=== PATIENT | female | born 1960 | race Hispanic/Latino ===

== ENCOUNTER 2017-10-18 13:17 | Emergency (ER) | payer OTHER, BC ==
[2017-10-18 13:23] VITALS: O2SAT 100
[2017-10-18 13:56] LABS: VENOUS BLOOD GAS BASE EXCESS 6.6 mmol/L (0.0-2.0); VENOUS BLOOD GAS PCO2 50 mmHg (40-60); VENOUS BLOOD GAS PO2 19 mm/Hg (30-55); VENOUS BLOOD PH 7.42 (7.32-7.43)
--- NOTE | 2017-10-18 13:59 | ED PDOC ---
HPI: General Adult Time Seen by Provider: 10/18/17 13:22 Chief Complaint (Nursing): Medical Clearance Chief Complaint (Provider): Medical clearance History Per: Patient History/Exam Limitations: no limitations Onset/Duration Of Symptoms: Hrs (VP DATA) Current Symptoms Are (Timing): Still Present Severity: Mild Pain Scale Rating Of: 0 Additional Complaint(s): Sivan Amin is a 57 year old female, with no past medical history, who presents to the emergency department complaining of nausea, dizziness and slight headache after possible exposure to CO while at work today. Fire department was called and they had detectable carbon monoxide in the building. Patient was sent here for evaluation. She denies any other medical complaints. PMD: None provided. Past Medical History Reviewed: Historical Data, Nursing Documentation, Vital Signs Vital Signs: Last Vital Signs Temp Pulse 70 10/18/17 14:55 Resp 16 10/18/17 14:55 BP 120/71 10/18/17 14:55 Pulse Ox 100 10/18/17 14:55 - Medical History PMH: No Chronic Diseases - Surgical History Surgical History: No Surg Hx - Family History Family History: States: Unknown Family Hx - Home Medications Home Medications: Ambulatory Orders Medication Instructions Recorded No Known Home Med 10/18/17 - Allergies Allergies/Adverse Reactions: Allergies Allergy/AdvReac Type Severity Reaction Status Date / Time No Known Allergies Allergy Verified 10/18/17 13:20 Review of Systems ROS Statement: Except As Marked, All Systems Reviewed And Found Negative Gastrointestinal: Positive for: Nausea Neurological: Positive for: Headache (mild), Dizziness Physical Exam - Reviewed Nursing Documentation Reviewed: Yes Vital Signs Reviewed: Yes - Physical Exam Appears: Positive for: Well, Non-toxic, No Acute Distress Head Exam: Positive for: ATRAUMATIC, NORMAL INSPECTION, NORMOCEPHALIC Skin: Positive for: Normal Color, Warm, Dry Eye Exam: Positive for: Normal appearance, EOMI, PERRL Neck: Positive for: Normal, Painless ROM, Supple Cardiovascular/Chest: Positive for: Regular Rate, Rhythm. Negative for: Murmur Respiratory: Positive for: Normal Breath Sounds. Negative for: Respiratory Distress Gastrointestinal/Abdominal: Positive for: Normal Exam, Soft. Negative for: Tenderness Extremity: Positive for: Normal ROM. Negative for: Deformity, Swelling Neurologic/Psych: Positive for: Alert, Oriented (x3). Negative for: Motor/ Sensory Deficits - ECG ECG Rhythm: Positive for: Sinus Rhythm (normal) Interpretation Of ECG: Normal Rate: 60 O2 Sat by Pulse Oximetry: 100 (RA) Pulse Ox Interpretation: Normal - Progress ED Course And Treament: pt has no sx now comfortable. advise close f/u with pmd. all of pt's questions were answered and pt agree's with plan. pt leaves ambulatory and in good spirits. Re-evaluation Time: 15:06 Condition: Improved Medical Decision Making Medical Decision Making: Initial Impression: medical clearance for CO poisoning Initial Plan: --VBG --Reevaluation Scribe Attestation: Documented by Manuel Shukla, acting as a scribe for Junior Jha MD Provider Scribe Attestation: All medical record entries made by the Scribe were at my direction and personally dictated by me. I have reviewed the chart and agree that the record accurately reflects my personal performance of the history, physical exam, medical decision making, and the department course for this patient. I have also personally directed, reviewed, and agree with the discharge instructions and disposition. Disposition - Clinical Impression Clinical Impression: Carbon monoxide poisoning - Patient ED Disposition Is Patient to be Admitted: No Counseled Patient/Family Regarding: Studies Performed, Diagnosis, Need For Followup, Rx Given - Disposition Referrals: [facility] [Outside] Disposition: Routine/Home Disposition Time: 14:43 Condition: GOOD Instructions: Carbon Monoxide Poisoning (ED) Forms: Care Thread (Bengali)
[2017-10-18 14:56] VITALS: BP 120/71; RESP 16
[2017-10-18 15:06] VITALS: PULSE 60
--- NOTE | 2017-10-19 12:07 | CARD ---
APPROVED REPORT EKG Measurement Heart [id number] <Conclusion> Normal sinus rhythm Normal ECG
== END 2017-10-18 15:22 | disposition home or self-care (01) ==
LOC: H.ER 13:17
DX: T58.91XA Toxic effect of carbon monoxide from unspecified source, accidental (unintentional), initial encounter (principal); Y99.0 Civilian activity done for income or pay